=== PATIENT | female | born 1945 | race Caucasian/White ===

== ENCOUNTER → 2016-11-05 | Day surgery (SDC) | payer MEDICARE, BC ==
[2016-06-29 12:41] VITALS: BMI 27.4
[~2016-11-05] MED LIST: BUPIVACAINE 0.5% 30 ML VIAL ONE; CEFAZOLIN 1 GM VIAL ONE; DEXAMETHASONE 4 MG/ML VIAL IV ONE; FENTANYL 100 MCG/2 ML VIAL IV PRN; FENTANYL 250 MCG/5 ML VIAL IV ONE; GLYCOPYRROLATE 1 MG VIAL IM ONE; HYDROCODONE 5 MG/ACETAMIN 325 MG TAB ONE; LABETALOL 20 MG/4 ML SYRINGE IV PRN; MEPERIDINE 25 MG/ML TUBEX IV PRN; MIDAZOLAM 2 MG/2 ML VIAL IV ONE; ONDANSETRON HCL 4 MG ODT TAB PO PRN; ONDANSETRON HCL 4 MG/2 ML VIAL IV ONE; ONDANSETRON HCL 4 MG/2 ML VIAL IV PRN; PROMETHAZINE 25 MG/ML VIAL IV PRN; PROPOFOL 200 MG/20 ML VIAL IV ONE; Sodium Bicarbonate (Neut) 2.4 mEq/5 ml vial INF ONE; hydrALAZINE 20 MG/ML VIAL IV PRN
--- NOTE | 2016-11-05 08:20 | SC.ANESPOS ---
Post-Anesthesia Note LOC: [facility] Post-Anesthesia Assessment: Awake, Returned to Baseline, Hemodynamically Stable , Pain Control Adequate Phase I & II Recovery Complete: Yes Apparent Anesthesia Complication: No : N - Vital Signs Blood Pressure: 108/68 Pulse: 76 Resp Rate: 18 O2 Sat: 95 Temp: 97.6 F
--- NOTE | 2016-11-05 09:20 | HIM.ANES ---
Anesthesia Evaluation & Plan Diagnoses: UNSPECIFIED BENIGN MAMMARY DYSPLASIA OF LEFT BREAST (11/05/16) Consented Procedure: LEFT NEEDLE LOCALIZATION BREAST LUMPECTOMY - Focused Review of Systems Cardiac History: No: Hx Cardiac Disorders HEENT: Yes: Cataracts (SMALL), Hx Vision Problem (WEARS GLASSES), Other HEENT Problems Hx Other HEENT Surgery: T&A Respiratory: Yes: Hx Snoring, Hx Recent Cold/Flu (02/23/16/Resolved) No: Hx Pneumonia Gastrointestinal: Yes: Hx Gastroesophageal Reflux Disease, Hx Gastrointestinal Disorders, Hx Diverticulitis, Hx Diverticulosis, Hx Colonoscopy Neurological/Musculoskeletal: Yes: Hx Back Pain (AND NECK) No: Hx Neurological Disorders Psychological: Yes Hx Anxiety, Yes Hx Mental/Emotional Disorders Blood/Autoimmune: No: Hx AIDS, Hx Hepatitis (type) Smoking Status: Former smoker Surgical History: Yes: T&A Other Surgical History: T&A RIGHT MASTECTOMY L LEG VEIN LIGATION, SKIN CANCER REMOVAL 10/24/2016 - Focused Physical Exam NPO since: 11/04/16 2100 Mallampati: Class II Thyromental Distance: Greater than 3 Neck: Full Range of Motion Dental: Normal - no significant findings Cardiovascular/Chest: Normal Respiratory: Lungs clear Any problems with anesthesia, including nausea and vomiting?: No Any relatives with a history of Malignant Hyperthermia?: No Beta Rodrigo given (if appropriate): N/A Does the patient have a history of Motion Sickness-: No Other: Allergies Allergy/AdvReac Type Severity Reaction Status Date / Time sulfamethoxazole Allergy Mild Hives* Verified 11/05/16 07:39 [From Bactrim] trimethoprim [From Bactrim] Allergy Mild Hives* Verified 11/05/16 07:39 aspirin Allergy See Verified 11/05/16 07:39 Comments codeine Allergy Nausea/Vomi Verified 11/05/16 07:39 ting diclofenac sodium Allergy Hives* Verified 11/05/16 07:39 [From Arthrotec 50] misoprostol Allergy Hives* Verified 11/05/16 07:39 [From Arthrotec 50] Home Medications Medication Instructions Recorded Last Taken Type Alprazolam [Xanax] 0.25 mg PO DAILY PRN 02/13/16 1 Month Ago History Ibuprofen 1 tab PO DAILY PRN 06/27/16 10/22/16 History Height and Weight Patient's height 5 ft 5 in Patient's weight 162 lb BMI 27.4 Vital Signs Temperature 97.6 F 11/05/16 08:20 Pulse Rate 76 11/05/16 08:20 Respiratory Rate 18 11/05/16 08:20 Blood Pressure 108/68 11/05/16 08:20 Pulse Oxygen Saturation 95 11/05/16 08:20 - Anesthetic Plan Anesthesia Type: General ASA Class: 2 -: I have examined this patient and reviewed the medical record. The patient has been assessed prior to anesthesia. Risks and benefits of anesthesia and anesthetic technique options have been discussed and all questions answered. The patient accepts the risk and desires me to proceed with the planned anesthetic.
--- NOTE | 2016-11-05 11:13 | HIMOPRPT ---
DATE OF PROCEDURE: 11/05/16 PREOPERATIVE DIAGNOSIS: Atypical ductal hyperplasia of the left breast POSTOPERATIVE DIAGNOSIS: Atypical ductal hyperplasia of the left breast, pathology pending. PROCEDURE: Left breast lumpectomy with preoperative needle localization SURGEON: Julian Tijerina DO. ANESTHESIA: General anesthetic ANESTHESIOLOGIST: Dr. Justo Porras DRAINS: None. COMPLICATIONS: None. SPONGE COUNT: Correct PATIENT CONDITION: Stable. ESTIMATED BLOOD LOSS: 1 ml. SPECIMEN: Left breast tissue with needle localization wire and biopsy clip. INDICATIONS: This is a 71-year-old female with abnormal mammogram, core biopsy demonstrated atypical ductal hyperplasia. We recommended to this patient left breast lumpectomy with preoperative needle localization. The risks associated with the procedure were discussed with the patient in detail and in person.These risks include, but not limited to bleeding, infection , incomplete excision, need for reoperation, possible need for left mastectomy in the future, injury to cutaneous nerves, resultant paresthesia, possibly decreased range of motion of the right upper extremity and the right shoulder, scapular winging, deep vein thrombosis, resultant pulmonary embolism, and perioperative cardiac morbidity and mortality. All questions were answered. Informed consent was obtained. FINDINGS: No palpable masses were identified in the left breast after excision of the specimen with a biopsy clip and needle localization wire. The specimen radiograph was performed by Dr. Luz and demonstrated needle localization wire as well as biopsy clip. PROCEDURE IN DETAIL: DREA OLIVIA underwent needle localization wire placement by Dr. Luz. See radiology report for full details. The patient was then brought to the operative suite at [facility] and placed in supine position. General anesthesia was induced. Having successful completion of this, left breast and left axilla was then sterilely prepped and draped in the usual fashion. All members of surgical team were in agreement of correct patient and correct procedure. A transverse incision was made at the lower outer aspect of the breast. The incision and subsequent breast tissue excision was five centimeters lateral to the middle point of the left breast, staying well away from the nipple and areola vascular pedicle. Skin flaps were raised. Needle localization was brought into the skin incision and a cylinder of tissue extending down to the fascia of the breast and chest wall was removed completely encircling the needle localization wire, marked for orientation and sent for specimen radiograph with the findings as described above. The area was copiously irrigated and aspirated dry, closed in layers with 3-0 Vicryl and 4-0 Monocryl after infiltration of local anesthetic. Dermabond was applied. Anesthesia was reversed. The patient was taken to recovery having tolerated the procedure well.
--- NOTE | 2016-11-05 13:23 | DIRPT ---
CLINICAL DATA: Surgical excision of biopsy-proven atypical ductal hyperplasia in the lower outer quadrant of the left breast after needle/wire localization which was performed earlier today. EXAM: SPECIMEN RADIOGRAPH OF THE LEFT BREAST COMPARISON: Previous exam(s). FINDINGS: Status post excision of the left breast. The localization wire tip and the ribbon shaped tissue marker clip are present in the specimen. I discussed this with Dr. Tijerina in the operating room by telephone on 11/05/2016 at 1055 hr. IMPRESSION: Specimen radiograph of the left breast. Electronically Signed By: Geronimo Luz M.D. On: 11/05/2016 13:21
[2016-11-05 13:51] VITALS: BP 108/68; PULSE 76; TEMP 97.6
== END ==
LOC: SDC 06:40 → EDSTATUS 09:15
PROVIDERS: ATTEND Surgery
PROC: 0HBU0ZZ Excision of Left Breast, Open Approach (ICD-10-PCS; principal; 2016-11-05 10:05)
DX: N62 Hypertrophy of breast (principal); N60.92 Unspecified benign mammary dysplasia of left breast; K21.9 Gastro-esophageal reflux disease without esophagitis; F41.9 Anxiety disorder, unspecified; Z87.891 Personal history of nicotine dependence; Z85.3 Personal history of malignant neoplasm of breast; Z79.899 Other long term (current) drug therapy
CPT/HCPCS: 19125; 76098; A9270; J0690; J1100; J2405; J2550; J3010; J3490; J2250